=== PATIENT | male | born 2000 | race Two or more races ===

== ENCOUNTER 2023-06-11 10:48 | Emergency (ER) | payer SELFPAY ==
[2023-06-11 10:58] VITALS: RESP 17; BMI 27.8
[2023-06-11] MEDS: DIPHTH,PERTUSS(ACELL),TET 0.5 ML DISP.SYRIN IM ONE (12:40)
[2023-06-11 13:19] LABS: BASO % 0.2 % (0-2.0); EOS % 0.2 % (0-4.5); HEMATOCRIT 42.9 % (35.4-49); HEMOGLOBIN 14.2 GM/dL (11.7-16.9); MCHC 33.2 g/dl (32.0-35.9); MEAN CELL VOLUME 84.1 fl (80-96); MEAN PLT VOLUME 7.5 fl (7.5-11.1); MONO % 4.3 % (3.8-10.2); NEUT % 86.3 % (42.8-82.8); PLATELET COUNT 336 10^3/uL (134-434); RDW 13.2 % (11.9-15.9); WHITE BLOOD COUNT 11.5 K/mm3 (4.0-10.0)
[2023-06-11 13:47] LABS: CALCIUM 9.3 mg/dL (8.5-10.1)
[2023-06-11 13:48] LABS: BLOOD UREA NITROGEN 20.9 mg/dL (7-18)
[2023-06-11 13:59] LABS: CREATININE 0.9 mg/dL (0.55-1.3)
[2023-06-11 19:10] VITALS: BP 102/60; PULSE 62; TEMP 98.6
== END 2023-06-11 20:05 | disposition short-term general hospital (02) ==
LOC: JERFT 10:48
PROC: 3E0234Z Introduction of Serum, Toxoid and Vaccine into Muscle, Percutaneous Approach (ICD-10-PCS; principal; 2023-06-11)
DX: S61.032A Puncture wound without foreign body of left thumb without damage to nail, initial encounter (principal); S60.222A Contusion of left hand, initial encounter; X58.XXXA Exposure to other specified factors, initial encounter; Z23 Encounter for immunization
CPT/HCPCS: 36415; 73130-TC-LT-FY; 73206-TC-RT; 80048; 85025; 90715; 99285-25; Q9967